=== PATIENT | male | born 1995 | race African-American/Black ===

== ENCOUNTER 2019-04-11 20:32 | Emergency (ER) | payer OTHER ==
[~2019-04-11] VITALS: Ht 177.8 cm; Wt 88.6 kg
[2019-04-11 20:32] VITALS: BP 145/80
[2019-04-11] MEDS ORDERED: ACETAMINOPHEN 325 MG TAB PO ONE (21:00)
[2019-04-11 21:37] LABS: INFLUENZA A AMPLIFICATION NEGATIVE (NEGATIVE); INFLUENZA B AMPLIFICATION POSITIVE (NEGATIVE)
== END 2019-04-11 22:04 | disposition home or self-care (01) ==
LOC: M ED 20:32
DX: J11.1 Influenza due to unidentified influenza virus with other respiratory manifestations (principal); F17.200 Nicotine dependence, unspecified, uncomplicated